=== PATIENT | male | born 1995 | race Caucasian/White ===

== ENCOUNTER 2018-03-12 19:13 | Emergency (ER) | payer OTHER ==
[2018-03-12] MEDS ORDERED: NS 0.9% 1000 ML* 1,000 ML IV ONE (19:33)
[2018-03-12 19:52] LABS: ABS Basophils 0.1 10^3/ul (0-0.2); ABS Eosinophils 0.1 10^3/ul (0-0.6); ABS Lymphocytes 1.7 10^3/ul (1.0-4.8); ABS Monocytes 0.7 10^3/ul (0-0.8); ABS Nucleated RBC 0 10^3/ul; Eosinophil % 0.9 % (0-6); Hematocrit 47 % (42-52); Hemoglobin 16.4 g/dl (14.0-18.0); Mean Corpuscular HGB Conc 35 g/dl (31-36); Mean Corpuscular Hemoglobin 30 pg (27-31); Mean Corpuscular Volume 85 fL (80-94); Mean Platelet Volume 6.5 um3 (7.4-10.4); Nucleated Red Blood Cells % 0; Platelet Count 252 10^3/ul (150-450); Red Blood Count 5.56 10^6/ul (4.00-5.40); Red Cell Distribution Width 14 % (10.5-15); White Blood Count 10.5 10^3/ul (3.5-10.8)
[2018-03-12] MEDS ORDERED: Iodixanol* (CONTRAST) 320 MG/ML 100 ML SDV IV ONE (20:04)
[2018-03-12 20:06] LABS: EGFR Non-African American 80.3 (>60)
--- NOTE | 2018-03-12 20:32 | RAD ---
INDICATION: Hemoptysis. COMPARISON: There are no prior studies available for comparison. TECHNIQUE: A CT scan of the chest was performed with intravenous contrast following intravenous injection of 80 ml of Visipaque 320 nonionic contrast. Contiguous axial sections were obtained from the lung apices through the lung bases. Images were reconstructed in the coronal and sagittal planes. FINDINGS: There are patchy groundglass infiltrates present in the right middle and lower lobes. The left lung is clear. No pleural effusion is seen. No significant enlarged mediastinal or hilar lymph nodes are seen. The heart is within normal limits in size. No pericardial effusion is present. The thoracic aorta is normal in caliber. Images of the upper abdomen are within normal limits. No significant focal osseous abnormality is seen. IMPRESSION: RIGHT LOWER AND MIDDLE LOBE GROUNDGLASS INFILTRATES CONSIDER INFECTIOUS PROCESSES, PULMONARY CONTUSION, INFLAMMATION OR HEMORRHAGE
[2018-03-12 21:03] LABS: INR 1.04 (0.77-1.02)
[2018-03-12 22:18] VITALS: BP 108/48
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
== END 2018-03-12 23:40 | disposition short-term general hospital (02) ==
LOC: ED 19:13
DX: S27.321A Contusion of lung, unilateral, initial encounter (principal); W16.42XA Fall into unspecified water causing other injury, initial encounter; Y93.39 Activity, other involving climbing, rappelling and jumping off; Y92.89 Other specified places as the place of occurrence of the external cause; R91.8 Other nonspecific abnormal finding of lung field
CPT/HCPCS: 36415; 71260; 80053; 82550; 85025; 85610; 85730; 96360; 99285; Q9967